=== PATIENT | female | born 1940 | race Two or more races ===

== ENCOUNTER 2018-10-28 14:37 | Outpatient (CLI) | payer OTHER ==
[~2018-10-28 14:37] MED LIST: DIOVAN160 M1 PO; SULAR40 MG PO
== END 2018-10-28 14:41 | disposition home or self-care (01) ==
LOC: MAMO-SONO 14:37
DX: N64.4 Mastodynia (principal)

== ENCOUNTER 2020-03-15 13:02 | Outpatient (CLI) | payer OTHER | END 2020-03-15 13:52 | disposition home or self-care (01) | LOC: MAMO-SONO 13:02 | PROVIDERS: ATTEND Obstetrics & Gynecology Obstetrics | DX: Z12.31 Encounter for screening mammogram for malignant neoplasm of breast (principal); N64.4 Mastodynia ==

== ENCOUNTER 2024-05-27 13:04 | Outpatient (CLI) | payer OTHER | END 2024-05-27 13:18 | disposition home or self-care (01) | LOC: SONOGRAMA 13:04 | PROVIDERS: ATTEND Internal Medicine | DX: E03.9 Hypothyroidism, unspecified (principal); M81.0 Age-related osteoporosis without current pathological fracture; R79.89 Other specified abnormal findings of blood chemistry; I10 Essential (primary) hypertension; E78.5 Hyperlipidemia, unspecified; R73.03 Prediabetes ==

== ENCOUNTER 2024-06-25 07:21 | Outpatient (CLI) | payer OTHER | END 2024-06-25 07:22 | disposition home or self-care (01) | LOC: NUCLEAR 07:21 | PROVIDERS: ATTEND Internal Medicine | DX: E03.9 Hypothyroidism, unspecified (principal) | CPT/HCPCS: 78014; A9512 ==

== ENCOUNTER 2024-06-26 08:14 | Outpatient (CLI) | payer OTHER | END 2024-06-26 08:15 | disposition home or self-care (01) | LOC: NUCLEAR 08:14 | PROVIDERS: ATTEND Internal Medicine | DX: E03.9 Hypothyroidism, unspecified (principal) | CPT/HCPCS: 78014; A9512; A9531 ==

== ENCOUNTER 2024-07-11 15:07 | Outpatient (CLI) | payer OTHER | END 2024-07-11 15:13 | disposition home or self-care (01) | LOC: SONOGRAMA 15:07 | PROVIDERS: ATTEND Internal Medicine | DX: E04.2 Nontoxic multinodular goiter (principal) ==

== ENCOUNTER 2024-07-21 09:17 | Outpatient (CLI) | payer OTHER | END 2024-07-21 09:22 | disposition home or self-care (01) | LOC: SONOGRAMA 09:17 | PROVIDERS: ATTEND Pathology Anatomic Pathology | DX: D34 Benign neoplasm of thyroid gland (principal); E07.89 Other specified disorders of thyroid; D44.0 Neoplasm of uncertain behavior of thyroid gland; E04.1 Nontoxic single thyroid nodule ==

== ENCOUNTER 2024-09-15 13:12 | Outpatient (CLI) | payer OTHER | END 2024-09-15 13:18 | disposition home or self-care (01) | LOC: MAMO-SONO 13:12 | PROVIDERS: ATTEND Obstetrics & Gynecology Obstetrics | DX: N64.4 Mastodynia (principal) ==

== ENCOUNTER 2024-11-03 07:50 | Outpatient (CLI) | payer OTHER | END 2024-11-03 07:52 | disposition home or self-care (01) | LOC: SONOGRAMA 07:50 | PROVIDERS: ATTEND Pathology Anatomic Pathology & Clinical Pathology | DX: E04.2 Nontoxic multinodular goiter (principal); D34 Benign neoplasm of thyroid gland; E07.89 Other specified disorders of thyroid ==

== ENCOUNTER 2025-03-12 12:15 | Outpatient (CLI) | payer OTHER ==
[2025-03-12 13:35] LABS: CREATININE SERUM 0.8 mg/dL (0.55-1.02)
== END 2025-03-12 12:16 | disposition home or self-care (01) ==
LOC: LAB 12:15
PROVIDERS: ATTEND Radiology Diagnostic Radiology
DX: R10.11 Right upper quadrant pain (principal)

== ENCOUNTER 2025-03-17 07:58 | Outpatient (CLI) | payer OTHER ==
[2025-03-20] MEDS ORDERED: IRBESARTAN150 MG PO (16:55)
[2025-03-20] MEDS ORDERED: ATENOLOL25 MG PO (16:56)
== END 2025-03-17 08:13 | disposition home or self-care (01) ==
LOC: RAD 07:58
PROVIDERS: ATTEND Internal Medicine Gastroenterology
DX: R10.11 Right upper quadrant pain (principal); R10.10 Upper abdominal pain, unspecified; Q79.1 Other congenital malformations of diaphragm; R10.13 Epigastric pain
CPT/HCPCS: 72197; 74183; 76700; Q9965